=== PATIENT | male | born 1990 | race African-American/Black ===

== ENCOUNTER 2021-01-02 21:29 | Emergency (ER) | payer MEDICARE, OTHER ==
[~2021-01-02] VITALS: Ht 188 cm; Wt 95.1 kg
[2021-01-02] MEDS ORDERED: HYDR500C3 PO (21:56)
[2021-01-02] MEDS ORDERED: FOLI1TAB11 PO (21:56)
[2021-01-02] MEDS ORDERED: [UNRECOGNIZED DRUG - CODE] PO (21:56)
[2021-01-02] MEDS ORDERED: NOXI1TAB PO (21:56)
[2021-01-02] MEDS ORDERED: NS 1,000 ML IV ONE (23:15)
[2021-01-03] MEDS ORDERED: diphenhydrAMINE 50MG/ML VIAL (J1200) IV ONE
[2021-01-03 00:10] LABS: ALBUMIN 3.8 GM/DL (3.2-5.2); ALT/SGPT 24 U/L (12-78); BILIRUBIN,TOTAL 1.3 MG/DL (0.2-1.0); BLOOD UREA NITROGEN 9 MG/DL (7-18); CARBON DIOXIDE LEVEL 27 MEQ/L (21-32); CHLORIDE LEVEL 107 MEQ/L (98-107); CPK CREATINE PHOSPHOKINASE 217 U/L (39-308); CREATININE FOR GFR 1.07 MG/DL (0.70-1.30); FERRITIN 9 NG/ML (26-388); GLOMERULAR FILTRATION RATE > 60.0 (>60); GLUCOSE, FASTING 78 MG/DL (70-100); LDH LACTATE DEHYDROGENASE 203 U/L (87-241); POTASSIUM SERUM 4.5 MEQ/L (3.5-5.1); SODIUM LEVEL 141 MEQ/L (136-145); TOTAL PROTEIN 7.9 GM/DL (6.4-8.2)
[2021-01-03 00:39] LABS: BASO # 0.2 10^3/uL (0.0-0.2); BASO % 1.8 % (0.0-1.0); EOS # 0.5 10^3/uL (0.0-0.5); EOS % 5.2 % (0.0-3.0); HEMATOCRIT 30.7 % (42.0-52.0); LYMPH # 3.1 10^3/uL (1.5-5.0); LYMPH % 33.6 % (24.0-44.0); MEAN CORPUSCULAR HGB CONC 32.6 g/dl (32.0-36.5); MEAN CORPUSCULAR VOLUME 52.1 fl (80.0-96.0); MONO # 0.8 10^3/uL (0.0-0.8); MONO % 8.5 % (2.0-8.0); NEUTROPHILS # 4.6 10^3/uL (1.5-8.5); NEUTROPHILS % 50.5 % (36.0-66.0); PLATELET COUNT, AUTOMATED 545 10^3/uL (150-450); RED BLOOD COUNT 5.89 10^6/uL (4.30-6.10); WHITE BLOOD COUNT 9.1 10^3/uL (4.0-10.0)
[2021-01-03] MEDS: HYDROMORPHONE HCL 0.5 MG/ 0.5 ML SYRINGE (J1170 PER 1) IV PRN ×2 (00:43→01:31)
[2021-01-03 00:44] LABS: ANISOCYTOSIS 4+; MICROCYTOSIS 4+; POIKILOCYTOSIS 2+; POLYCHROMASIA 2+
[2021-01-03 00:45] LABS: PLATELET ESTIMATE INCREASED (NORMAL); TARGET CELLS 4+
[2021-01-03 00:47] LABS: HYPOCHROMASIA 1+
[2021-01-03 01:54] VITALS: BP 131/80
[2021-01-09 13:28] LABS: HEMOGLOBIN A2 4.3 % (1.8-3.2); HEMOGLOBIN F (FETAL) Reflexed % (0.0-2.0); HEMOGLOBIN S Reflexed % (0.0)
[2021-01-10 16:33] LABS: HEMOGLOBIN A Reflexed % (96.4-98.8)
== END 2021-01-03 01:57 | disposition home or self-care (01) ==
LOC: M ED 21:29
DX: D57.819 Other sickle-cell disorders with crisis, unspecified (principal); Z88.8 Allergy status to other drugs, medicaments and biological substances; Z88.5 Allergy status to narcotic agent; Z88.1 Allergy status to other antibiotic agents
CPT/HCPCS: 36415; 80053; 82550; 82728; 83021; 83615; 85025; 85046; 86850; 86900; 86901; 96361; 96374; 96375; 96376; 99284; J1170; J1200

== ENCOUNTER 2021-01-04 19:40 | Emergency (ER) | payer MEDICARE, OTHER ==
[~2021-01-04] VITALS: Ht 188 cm; Wt 96.0 kg
[~2021-01-04 19:40] MED LIST: FOLI1TAB11 PO; HYDR500C3 PO; NOXI1TAB PO; [UNRECOGNIZED DRUG - CODE] PO
[2021-01-04] MEDS ORDERED: diphenhydrAMINE 50MG/ML VIAL (J1200) IV STA (20:31)
[2021-01-04] MEDS ORDERED: HYDROMORPHONE HCL 0.5 MG/ 0.5 ML SYRINGE (J1170 PER 1) IV ONE (20:35)
[2021-01-04] MEDS ORDERED: ONDANSETRON 4MG/2ML VIAL IV ONE (20:35)
[2021-01-04] MEDS ORDERED: NS 1,000 ML IV ONE (20:35)
[2021-01-04 21:10] LABS: BASO # 0.1 10^3/uL (0.0-0.2); BASO % 1.6 % (0.0-1.0); EOS # 0.2 10^3/uL (0.0-0.5); HEMATOCRIT 28.7 % (42.0-52.0); HEMOGLOBIN 9.3 g/dl (13.5-17.5); LYMPH # 2.2 10^3/uL (1.5-5.0); LYMPH % 29.5 % (24.0-44.0); MEAN CORPUSCULAR HEMOGLOBIN 16.8 pg (27.0-33.0); MEAN CORPUSCULAR HGB CONC 32.4 g/dl (32.0-36.5); MEAN CORPUSCULAR VOLUME 51.7 fl (80.0-96.0); MONO # 0.8 10^3/uL (0.0-0.8); MONO % 10.3 % (2.0-8.0); NEUTROPHILS % 55.1 % (36.0-66.0); PLATELET COUNT, AUTOMATED 547 10^3/uL (150-450); RED BLOOD COUNT 5.55 10^6/uL (4.30-6.10); WHITE BLOOD COUNT 7.3 10^3/uL (4.0-10.0)
[2021-01-04 21:20] LABS: PLATELET ESTIMATE INCREASED (NORMAL)
[2021-01-04 21:21] LABS: ANISOCYTOSIS 3+; MICROCYTOSIS 4+; POIKILOCYTOSIS 2+; POLYCHROMASIA 2+; TARGET CELLS 4+
[2021-01-04 21:23] LABS: HYPOCHROMASIA 1+
[2021-01-04 21:31] LABS: BLOOD UREA NITROGEN 11 MG/DL (7-18); CALCIUM LEVEL 8.4 MG/DL (8.5-10.1); CARBON DIOXIDE LEVEL 29 MEQ/L (21-32); CHLORIDE LEVEL 107 MEQ/L (98-107); CREATININE FOR GFR 1.09 MG/DL (0.70-1.30); GLOMERULAR FILTRATION RATE > 60.0 (>60); GLUCOSE, FASTING 87 MG/DL (70-100); POTASSIUM SERUM 3.9 MEQ/L (3.5-5.1); SODIUM LEVEL 139 MEQ/L (136-145)
[2021-01-04 22:15] VITALS: BP 141/95
== END 2021-01-04 22:39 | disposition home or self-care (01) ==
LOC: M ED 19:40
DX: D57 Sickle-cell disorders (principal); M79.601 Pain in right arm; M79.604 Pain in right leg; J45.909 Unspecified asthma, uncomplicated; Z88.6 Allergy status to analgesic agent; Z88.8 Allergy status to other drugs, medicaments and biological substances
CPT/HCPCS: 80048; 85025; 85046; 93041; 93971; 94760; 96361; 96374; 96375; 99284; J1170; J1200; J2405

== ENCOUNTER 2021-01-09 05:36 | Emergency (ER) | payer OTHER ==
[~2021-01-09] VITALS: Ht 188 cm; Wt 96.3 kg
[2021-01-09 07:03] LABS: ALBUMIN 3.9 GM/DL (3.2-5.2); ALT/SGPT 26 U/L (12-78); BILIRUBIN,DIRECT 0.3 MG/DL (0.0-0.2); BILIRUBIN,TOTAL 1.3 MG/DL (0.2-1.0); BLOOD UREA NITROGEN 10 MG/DL (7-18); CALCIUM LEVEL 8.7 MG/DL (8.5-10.1); CARBON DIOXIDE LEVEL 27 MEQ/L (21-32); CHLORIDE LEVEL 107 MEQ/L (98-107); CK-MB VALUE MASS < 1.0 NG/ML (<3.6); CPK CREATINE PHOSPHOKINASE 209 U/L (39-308); CREATININE FOR GFR 1.08 MG/DL (0.70-1.30); GLOMERULAR FILTRATION RATE > 60.0 (>60); GLUCOSE, FASTING 96 MG/DL (70-100); LIPASE 150 U/L (73-393); MB/CK RELATIVE INDEX 0.48 (< OR =4); SODIUM LEVEL 139 MEQ/L (136-145); TOTAL PROTEIN 7.7 GM/DL (6.4-8.2); TROPONIN I < 0.02 NG/ML (< 0.10)
[2021-01-09] MEDS ORDERED: diphenhydrAMINE 50MG/ML VIAL (J1200) IV ONE (07:05)
[2021-01-09] MEDS ORDERED: HYDROMORPHONE HCL 0.5 MG/ 0.5 ML SYRINGE (J1170 PER 1) IV ONE (07:05)
[2021-01-09] MEDS ORDERED: NS 1,000 ML IV ONE (07:05)
[2021-01-09 07:06] LABS: BASO # 0.2 10^3/uL (0.0-0.2); BASO % 1.6 % (0.0-1.0); EOS # 0.3 10^3/uL (0.0-0.5); EOS % 3.2 % (0.0-3.0); HEMATOCRIT 34.2 % (42.0-52.0); HEMOGLOBIN 11.3 g/dl (13.5-17.5); LYMPH # 3.3 10^3/uL (1.5-5.0); LYMPH % 30.8 % (24.0-44.0); MEAN CORPUSCULAR HEMOGLOBIN 17.1 pg (27.0-33.0); MEAN CORPUSCULAR VOLUME 51.7 fl (80.0-96.0); MONO # 1.1 10^3/uL (0.0-0.8); MONO % 10.5 % (2.0-8.0); NEUTROPHILS # 5.7 10^3/uL (1.5-8.5); NEUTROPHILS % 53.4 % (36.0-66.0); PLATELET COUNT, AUTOMATED 618 10^3/uL (150-450); RED BLOOD COUNT 6.62 10^6/uL (4.30-6.10); WHITE BLOOD COUNT 10.6 10^3/uL (4.0-10.0)
[2021-01-09 09:00] VITALS: BP 125/76
== END 2021-01-09 09:17 | disposition home or self-care (01) ==
LOC: M ED 05:36
DX: D57.1 Sickle-cell disease without crisis (principal); Z79.899 Other long term (current) drug therapy; Z88.5 Allergy status to narcotic agent; Z88.1 Allergy status to other antibiotic agents
CPT/HCPCS: 80048; 80076; 82550; 82553; 83605; 83690; 85025; 93041; 96361; 96374; 96375; 99284; J1170; J1200

== ENCOUNTER 2021-01-17 02:47 | Emergency (ER) | payer OTHER ==
[~2021-01-17] VITALS: Ht 188 cm; Wt 98.6 kg
[2021-01-17 02:47] VITALS: BP 135/76
== END 2021-01-17 03:40 | disposition left against medical advice (07) ==
LOC: M ED 02:47
DX: Z53.21 Procedure and treatment not carried out due to patient leaving prior to being seen by health care provider (principal)

== ENCOUNTER 2021-01-19 17:43 | Emergency (ER) | payer OTHER ==
[~2021-01-19] VITALS: Ht 188 cm; Wt 100.0 kg
[2021-01-19 17:44] VITALS: BP 124/82
[2021-01-19] MEDS ORDERED: diphenhydrAMINE 50MG/ML VIAL (J1200) IV STA (20:29)
[2021-01-19] MEDS ORDERED: NS 1,000 ML IV ONE (20:30)
[2021-01-19] MEDS ORDERED: fentaNYL 100 MCG/2 ML INJECTION (J3010) IV ONE (20:30)
[2021-01-19] MEDS ORDERED: ONDANSETRON 4MG/2ML VIAL IV ONE (20:30)
== END 2021-01-19 21:41 | disposition left against medical advice (07) ==
LOC: M ED 17:43
DX: M79.601 Pain in right arm (principal); M79.652 Pain in left thigh; D57.1 Sickle-cell disease without crisis; Z53.9 Procedure and treatment not carried out, unspecified reason; Z88.1 Allergy status to other antibiotic agents; Z88.8 Allergy status to other drugs, medicaments and biological substances; Z79.899 Other long term (current) drug therapy

== ENCOUNTER 2021-04-15 00:54 | Emergency (ER) | payer OTHER ==
[~2021-04-15] VITALS: Ht 188 cm; Wt 100.6 kg
[2021-04-15] MEDS ORDERED: HYDROMORPHONE HCL 0.5 MG/ 0.5 ML SYRINGE (J1170 PER 1) IV ONE (05:10)
[2021-04-15] MEDS ORDERED: NS 1,000 ML IV ONE ×2 (05:10→06:25)
[2021-04-15] MEDS ORDERED: diphenhydrAMINE 50MG/ML VIAL (J1200) IV ONE (05:55)
[2021-04-15] MEDS ORDERED: diphenhydrAMINE 50MG/ML VIAL (J1200) As Ordered ONE (05:55)
[2021-04-15 06:08] LABS: HEMATOCRIT 33.3 % (42.0-52.0); HEMOGLOBIN 10.5 g/dl (13.5-17.5); MEAN CORPUSCULAR HEMOGLOBIN 17.3 pg (27.0-33.0); MEAN CORPUSCULAR HGB CONC 31.5 g/dl (32.0-36.5); MEAN CORPUSCULAR VOLUME 54.9 fl (80.0-96.0); PLATELET COUNT, AUTOMATED 520 10^3/uL (150-450); RED BLOOD COUNT 6.07 10^6/uL (4.30-6.10); WHITE BLOOD COUNT 10.1 10^3/uL (4.0-10.0)
[2021-04-15 06:30] LABS: BLOOD UREA NITROGEN 8 MG/DL (7-18); CALCIUM LEVEL 9.4 MG/DL (8.5-10.1); CARBON DIOXIDE LEVEL 28 MEQ/L (21-32); CHLORIDE LEVEL 106 MEQ/L (98-107); CREATININE FOR GFR 0.98 MG/DL (0.70-1.30); GLOMERULAR FILTRATION RATE > 60.0 (>60); GLUCOSE, FASTING 81 MG/DL (70-100); POTASSIUM SERUM 4.8 MEQ/L (3.5-5.1); SODIUM LEVEL 140 MEQ/L (136-145)
[2021-04-15 07:04] LABS: ANISOCYTOSIS 1+; ATYPICAL LYMPH 6 % (0-5); BASOPHILS 2 % (0-1); LYMPHOCYTES 35 % (16-44); MONOCYTES 6 % (0-5); NEUTROPHILS 51 % (28-66); NUCLEATED RED BLOOD CELL 8 % (0-0); POIKILOCYTOSIS 2+
[2021-04-15 07:05] LABS: MICROCYTOSIS 2+
[2021-04-15 07:06] LABS: OVALOCYTES 1+; SPHEROCYTES 1+; TARGET CELLS 2+
[2021-04-15 07:07] LABS: PLATELET ESTIMATE INCREASED (NORMAL); POLYCHROMASIA 1+
--- NOTE | 2021-04-15 07:20 | REPVR ---
PROCEDURE INFORMATION: Exam: XR Chest Exam date and time: 04/15/2021 6:50 AM Age: 30 years old Clinical indication: Pain; Other: Acute; Additional info: Sickle cell, acute pain TECHNIQUE: Imaging protocol: XR of the chest. Views: 1 view. COMPARISON: No relevant prior studies available. FINDINGS: Lungs: Unremarkable. No consolidation. Pleural spaces: Unremarkable. No pleural effusion. No pneumothorax. Heart/Mediastinum: Unremarkable. No cardiomegaly. Bones/joints: Unremarkable. IMPRESSION: No acute findings. Electronically signed by: Bhanu Wiggins On 04/15/2021 07:19:47 AM
[2021-04-15 08:10] VITALS: BP 136/87
== END 2021-04-15 08:17 | disposition home or self-care (01) ==
LOC: M ED 00:54
DX: D57.1 Sickle-cell disease without crisis (principal); M79.601 Pain in right arm; M79.604 Pain in right leg; Z88.1 Allergy status to other antibiotic agents; Z88.6 Allergy status to analgesic agent; Z79.899 Other long term (current) drug therapy
CPT/HCPCS: 71045; 80048; 83735; 85025; 85046; 96361; 96374; 96375; 99284; J1170; J1200